=== PATIENT | female | born 1970 | race Caucasian/White ===

== ENCOUNTER → 2017-01-11 | Outpatient (CLI) | payer BC ==
[~2017-01-11] MED LIST: AFRIN120 MG PO; ALIGN; ALVESCO80 MCG/Act IH; ASTELIN NASAL S34 ML NS; BCP TD; CALCIUM1 CAP PO; LEVOTHYROXIN0.075 MG PO; PROTONIX 40MG T40 MG PO; PROVIGIL PO; SINGULAIR10 MG PO; SUDAFED30 MG PO; THERA TEARS; VALIUM5 MG PO; VENTOLIN0.09 MG IH; VERAMYST27.5 MCG/A NS; VITAMINS; ZOLOFT50 MG PO; [UNRECOGNIZED DRUG - OTHER] NS
== END ==
LOC: MC.RAD 13:15
DX: Z12.31 Encounter for screening mammogram for malignant neoplasm of breast (principal)

== ENCOUNTER → 2017-02-03 | Outpatient (CLI) | payer BC | LOC: COL.RAD 13:21 | DX: M25.852 Other specified joint disorders, left hip (principal); S73.192A Other sprain of left hip, initial encounter; M94.8X8 Other specified disorders of cartilage, other site; M70.62 Trochanteric bursitis, left hip; M70.61 Trochanteric bursitis, right hip; S76.012A Strain of muscle, fascia and tendon of left hip, initial encounter; R60.0 Localized edema | CPT/HCPCS: A9585; Q9967 ==

== ENCOUNTER → 2017-02-10 | Outpatient (CLI) | payer BC | LOC: COL.RAD 08:00 | DX: M25.552 Pain in left hip (principal) | CPT/HCPCS: J3301; Q9967 ==

== ENCOUNTER → 2018-03-13 | Outpatient (CLI) | payer BC ==
[~2018-03-13] MED LIST changes: +AMOXICILLIN 8751 TAB PO; +CLARITIN 1010 MG/TAB PO; +COLACE 100100 MG/CAP PO; +ESTRACE2 MG PO; +FLONASE SENSIM9.9 ML NS; +MOBIC15 MG PO; +MOTRIN 600600 MG/TAB PO; +MULTIPLE VITAMI1 CAP PO; +PERCOCET 325 MG1 TA2 PO; +PROBIOTIC ACID1 EAC3 PO; +PROVERA5 MG; +SALINE 45 ML45 ML NS; +SYNTHROID0.125 MG/T PO; +VITAMIND3 5000; +ZOLOFT 100MG100 MG PO
== END ==
LOC: MC.RAD 14:37
DX: Z12.31 Encounter for screening mammogram for malignant neoplasm of breast (principal)

== ENCOUNTER → 2020-07-15 | Outpatient (CLI) | payer BC | LOC: MC.RAD 16:58 | DX: Z12.31 Encounter for screening mammogram for malignant neoplasm of breast (principal); N63.10 Unspecified lump in the right breast, unspecified quadrant ==

== ENCOUNTER → 2020-07-23 | Outpatient (CLI) | payer BC | LOC: MC.RAD 07:00 | DX: N60.01 Solitary cyst of right breast (principal) ==

== ENCOUNTER → 2022-01-01 | Outpatient (CLI) | payer BC | LOC: MC.RAD 12-10 13:00 | DX: Z12.31 Encounter for screening mammogram for malignant neoplasm of breast (principal) ==

== ENCOUNTER → 2024-03-14 | Outpatient (CLI) | payer BC | LOC: MC.RAD 06:53 | DX: Z12.31 Encounter for screening mammogram for malignant neoplasm of breast (principal) ==